=== PATIENT | male | born 1980 | race Caucasian/White ===

== ENCOUNTER → 2021-05-26 | Outpatient (CLI) | payer BC ==
[2021-05-26 13:27] VITALS: BP 154/99; PULSE 110; TEMP 98; BMI 64.8
--- NOTE | 2021-05-26 14:10 | P.HPBAR ---
Bariatric H&P - History & Physicial H&P Date: 05/26/21 History & Physicial: Visit/CC: initial clinic visit Patient initial contact: Initial weight: Initial weight in pounds: Height: 5 ft 8.5 in Initial BMI: Last weight: Current weight: 196.405 kg Current weight in pounds: 433.00 Current BMI: 64.8 [place] body weight (based on NIH guidelines): 71.214 kg Excess body weight loss: The patient is a 41 year-old M who presents for Bariatric Assessment. DATE OF SERVICE: 05/26/2021 REASON FOR CONSULTATION: Initial bariatric evaluation. HISTORY OF PRESENT ILLNESS: Hussain Nagel is a 41-year-old male who comes with lifelong morbid obesity. He presents for the first time in consultation. He comes in looking into bariatric procedures. He has tried calorie restriction and walking. His highest weight is 453 pounds. He has lower back pain. He has elevated blood pressure and heart rate. He has right hip pain. He denies knee pain. He has ankle pain of the right greater than left. His mother had diabetes and trouble with weight including sister with multiple sclerosis. He denies cancers. He has no deep venous thrombosis in himself. He reports his mother may have had blood clots. He denies food intolerances. He has trouble with sleeping. At height of 5 feet 8.5 inches, ideal body weight is 163 pounds. Highest weight is 453 pounds, body mass index 68.0. He comes in 432 pounds. His body mass index is 64.9. He is 269 pounds overweight. PAST MEDICAL HISTORY: 1. Morbid obesity due to excess calories 2. Body mass index of 68.0 3. Osteoarthritis of the lower back 4. Osteoarthritis of the right hip 5. Osteoarthritis of the bilateral ankles 6. Hypertensive heart disease 7. Gout PAST SURGICAL HISTORY: 1. Right foot surgery 2. Testicular surgery HOME MEDICATIONS: Home Medications Medication Instructions Recorded Confirmed Colchicin-Probenecid 0.5-500Mg 1 each PO DAILY 05/26/21 05/26/21 [Colbenemid] ALLERGIES: Allergies Allergy/AdvReac Type Severity Reaction Status Date / Time No Known Allergies Allergy Verified 05/26/21 14:12 SOCIAL HISTORY: Denies tobacco use. FAMILY HISTORY: No family history of ulcerative colitis disease or Crohn's disease. Family history of morbid obesity. No lupus in the family. No reports of stomach or esophageal cancer. Mother has diabetes and trouble with weight including sister with multiple sclerosis. He reports his mother may have had blood clots. REVIEW OF ORGAN SYSTEMS: CONSTITUTIONAL: At height of 5 feet 8.5 inches, ideal body weight is 163 pounds. Highest weight is 453 pounds, body mass index 68.0. He comes in 432 pounds. His body mass index is 64.9. He is 269 pounds overweight. HEENT: Denies any active troubles with vision or hearing. ENDOCRINE: Denies diabetes. Denies hypothyroidism. CARDIOVASCULAR: Has hypertensive heart disease. Has palpitations. RESPIRATORY: Has daytime somnolence and snores. GASTROINTESTINAL: Denies any bright red blood per rectum. No diarrhea. No constipation. Has gastroesophageal reflux disease. GENITOURINARY: Denies bladder urgency. No recent blood in urine MUSCULOSKELETAL: Has lower back pain and joint pain. Has gout. NEURO: Denies chronic migraines. No seizure disorders. PSYCH: Denies depression. No suicidal ideation. RHEUMATOLOGIC: No lupus. No rheumatoid arthritis. HEMATOLOGIC: Denies any abnormal bleeding or bruising. Denies past history of DVTs. SKIN: No rash. No skin cancer. PHYSICAL EXAM: VITAL SIGNS: Height 5 foot 8.5 inches, weight 432 pounds. BMI 64.9 Vital Signs Temp 98 F 05/26/21 13:24 Pulse 110 H 05/26/21 13:24 Resp BP 154/99 05/26/21 13:24 Pulse Ox GENERAL: Well-developed in no acute distress. HEENT: No scleral icterus. Extraocular movements grossly intact. Hears conversational speech. No nasal drainage. NECK: Supple without lymphadenopathy. CHEST: Nonlabored respirations with equal bilateral excursions. CARDIOVASCULAR: Regular rate and regular rhythm. Distal 2+ pulses. ABDOMEN: Obese, soft, nontender, nondistended. MUSCULOSKELETAL: No clubbing, cyanosis. NEURO: No focal or lateralizing signs. Cranial nerves 2 through 12 grossly within normal limits. PSYCH: Appropriate affect. Alert and oriented to person, place and time. SKIN: Good skin turgor. Well perfused. ASSESSMENT: 1. Morbid obesity due to excess calories 2. Body mass index of 68.0 to 63.9 3. Osteoarthritis of the lower back 4. Osteoarthritis of the right hip 5. Osteoarthritis of the bilateral ankles 6. Hypertensive heart disease 7. Gout 8. Family history of DVTs 9. Sleep disorder PLAN: 1. Surgical options including a band, gastric bypass, sleeve gastrectomy were described in detail. Alternatives such as gastric balloon including duodenal switch were described. 2. The [place] bariatric surgical collaborative data and outcomes calculator were described with surgical options. 3. Recommend a bariatric metabolic panel to evaluate for micro- including macronutrient deficiencies. 4. For history of daytime somnolence, recommend evaluation and treatment for sleep apnea. 5. Dietary surveillance and counseling was reviewed. Increased protein intake over 65 grams daily advised. 6. Will need cardiac risk assessment. 7. Recommend medical risk assessment. 8. Psych assessment per insurance guidelines. 9. Recommend upper endoscopy. 10. Recommend 12-lead EKG. 11. Recommend urine nicotine testing pre-op 12. Recommend urine drug screen Thank you for this consultation. Past Medical History Past Medical History: Hypertension, Sleep Apnea/CPAP/BIPAP History of Any Multi-Drug Resistant Organisms: MRSA Year Discovered:: 2018 MDRO Source:: right foot Additional Past Surgical History / Comment(s): right foot surgery due to mrsa. testicular surgery [place] Past Anesthesia/Blood Transfusion Reactions: No Reported Reaction Past Psychological History: No Psychological Hx Reported Smoking Status: Never smoker Past Alcohol Use History: None Reported Past Drug Use History: None Reported Surgical - Exam Vital Signs Temp Pulse BP 98 F 110 H 154/99 05/26/21 13:24 05/26/21 13:24 05/26/21 13:24 Bariatric Checklist Checklist: Plan: Checklist: EGD: 1. Hiatal hernia: 2. H. Pylori: HgbA1c: Vitamin D: Smoking: Primary care physician referral: dr anish meyers Psychiatry clearance: Cardiology clearance: Sleep study: Diet journal: VTE risk score: VTE risk level: Rehab needs at discharge:
== END | disposition home or self-care (01) ==
LOC: BARWHC3 12:45
PROVIDERS: ATTEND Surgery Plastic and Reconstructive Surgery
DX: Z48.815 Encounter for surgical aftercare following surgery on the digestive system (principal)
CPT/HCPCS: 99203

== ENCOUNTER 2024-05-14 14:44 | Emergency (ER) | payer BC ==
[2024-05-14 16:27] LABS: Basophils # (A) 0.1 k/uL (0-0.2); Basophils % (A) 1 %; Eosinophils # (A) 0.3 k/uL (0-0.7); Eosinophils % (A) 3 %; HCT 46.4 % (39.0-53.0); HGB 15.3 gm/dL (13.0-17.5); Lymphocytes # (A) 2.3 k/uL (1.0-4.8); Lymphocytes % (A) 22 %; MCH 29.3 pg (25.0-35.0); MCV 88.6 fL (80.0-100.0); Mean Platelet Volume 6.9; Monocytes # (A) 0.7 k/uL (0-1.0); Monocytes % (A) 6 %; Neutrophils # (A) 6.9 k/uL (1.3-7.7); Neutrophils % (A) 66 %; Platelet Count 306 k/uL (150-450); RBC 5.23 m/uL (4.30-5.90); RDW 13.3 % (11.5-15.5); WBC 10.4 k/uL (3.8-10.6)
[2024-05-14 16:36] LABS: Partial Thromboplastin Time 24.9 sec (22.0-30.0); Prothrombin Time 11.3 sec (10.0-12.5)
[2024-05-14 16:38] LABS: ALT 25 U/L (4-49); AST 21 U/L (17-59); African American GFR (CKD) >90 (>60 ml/min/1.73 sqM); Albumin 4.1 g/dL (3.5-5.0); Alkaline Phosphatase 72 U/L (38-126); Anion Gap 10 mmol/L; Blood Urea Nitrogen 12 mg/dL (9-20); Calcium 9.1 mg/dL (8.4-10.2); Carbon Dioxide 28 mmol/L (22-30); Chloride 101 mmol/L (98-107); Glucose 99 mg/dL (74-99); Non-African American GFR(CKD) >90 (>60 ml/min/1.73 sqM); Potassium 4.4 mmol/L (3.5-5.1); Sodium 139 mmol/L (137-145); Total Bilirubin 0.7 mg/dL (0.2-1.3); Total Protein 7.6 g/dL (6.3-8.2)
--- NOTE | 2024-05-14 16:46 | ED ---
Chest Pain HPI - General Chief Complaint: Chest Pain Stated Complaint: Chest pain Time Seen by Provider: 05/14/24 16:46 Source: patient Mode of arrival: ambulatory Limitations: no limitations - History of Present Illness Initial Comments: 44-year-old male presenting with chief complaint of chest pain. Patient states he has been having intermittent chest pain since this morning. It is centralized pain that is sharp in nature. Worse with certain movements. Not made worse with deep breaths or coughing. He is having no difficulty breathing. No lower extremity swelling. No cough, congestion, sore throat, fever, chills. No nausea vomiting or abdominal pain. No radiation of pain to the arm or jaw. No change with exertion. - Related Data Home Medications Medication Instructions Recorded Confirmed Albuterol Nebulized [Ventolin 2.5 mg INHALATION RT-Q4H PRN 05/14/24 05/14/24 Nebulized] Furosemide [Lasix] 40 mg PO DAILY 05/14/24 05/14/24 Gabapentin [Neurontin] 100 mg PO BID@0800,1300 05/14/24 05/14/24 Gabapentin [Neurontin] 300 mg PO HS 05/14/24 05/14/24 Ibuprofen [Motrin] 800 mg PO DAILY PRN 05/14/24 05/14/24 Phentermine HCl [Adipex-P] 37.5 mg PO DAILY 05/14/24 05/14/24 Potassium Chloride [Klor-Con M20] 20 meq PO DAILY 05/14/24 05/14/24 carvediloL [Coreg] 3.125 mg PO BID 05/14/24 05/14/24 lisinopriL [Zestril] 10 mg PO DAILY 05/14/24 05/14/24 methocarbamoL [Robaxin-750] 750 mg PO HS PRN 05/14/24 05/14/24 Allergies Allergy/AdvReac Type Severity Reaction Status Date / Time sulfamethoxazole Allergy Rash/Hives Verified 05/14/24 19:18 [From Bactrim] trimethoprim [From Bactrim] Allergy Rash/Hives Verified 05/14/24 19:18 Review of Systems ROS Statement: Those systems with pertinent positive or pertinent negative responses have been documented in the HPI. ROS Other: All systems not noted in ROS Statement are negative. Past Medical History Past Medical History: Hypertension, Sleep Apnea/CPAP/BIPAP Additional Past Medical History / Comment(s): Obese History of Any Multi-Drug Resistant Organisms: MRSA Date of last positivie culture/infection: 2017 MDRO Source:: right foot Additional Past Surgical History / Comment(s): right foot surgery due to mrsa. testicular surgery [place] Past Anesthesia/Blood Transfusion Reactions: No Reported Reaction Past Psychological History: No Psychological Hx Reported Smoking Status: Never smoker Past Alcohol Use History: None Reported Past Drug Use History: None Reported General Exam - General Exam Comments Initial Comments: Visual Physical Exam Vital signs reviewed General: Well-appearing, nontoxic, no acute distress. Head: Normocephalic, atraumatic Eyes: PERRLA, EOMI ENT: Airway patent Chest: Nonlabored breathing Skin: No visual rash, normal skin tone Neuro: Alert and oriented 3 Musculoskeletal: No gross abnormalities Limitations: no limitations General appearance: alert, in no apparent distress Head exam: Present: atraumatic, normocephalic, normal inspection Eye exam: Present: normal appearance, EOMI Neck exam: Present: normal inspection. Absent: meningismus Respiratory exam: Present: normal lung sounds bilaterally. Absent: respiratory distress, wheezes, rales, rhonchi, stridor Cardiovascular Exam: Present: regular rate, normal rhythm, normal heart sounds. Absent: systolic murmur, diastolic murmur, rubs, gallop, clicks Extremities exam: Absent: pedal edema Neurological exam: Present: alert, oriented X3 Psychiatric exam: Present: normal affect, normal mood Skin exam: Present: warm, dry Course Vital Signs 05/14/24 05/14/24 14:56 21:11 Temperature 98.7 F 98.4 F Pulse Rate 98 84 Respiratory 20 18 Rate Blood Pressure 117/77 121/79 O2 Sat by Pulse 98 98 Oximetry Chest Pain MDM - MDM I performed the quick note portion of this visit, electronically signed Mau Hernandez PA-C EKG shows sinus rhythm ventricular rate 94. NC interval 154. QRS 102. QT 327. QTc 379. No previous available for comparison. Was pt. sent in by a medical professional or institution (Dr. PA, SOLDERER, urgent care, hospital, or care home...) When possible be specific @ -No Did you speak to anyone other than the patient for history (EMS, parent, family, police, friend...)? What history was obtained from this source @ -No Did you review nursing and triage notes (agree or disagree)? Why? @ -I reviewed and agree with nursing and triage notes Were old charts reviewed (outside hosp., previous admission, EMS record, old EKG, old radiological studies, urgent care reports/EKG's, care home records)? Report findings @ -No old charts were reviewed Differential Diagnosis (chest pain, altered mental status, abdominal pain women, abdominal pain men, vaginal bleeding, weakness, fever, dyspnea, syncope, headache, dizziness, GI bleed, back pain, seizure, CVA, palpatations, mental health, musculoskeletal)? @ -MDM Differential Chest Pain: Stable Angina, Unstable Angina, STEMI, NSTEMI Aortic Dissection, Pneumothorax, Musculoskeletal, Esophageal Spasm GERD, Cholecystitis, Pancreatitis, Zoster This is not meant to be an all-inclusive list. EKG interpreted by me (3pts min.). @ -As above X-rays interpreted by me (1pt min.). @ -Chest x-ray shows no acute process. CT interpreted by me (1pt min.). @ -None done U/S interpreted by me (1pt. min.). @ -None done What testing was considered but not performed or refused? (CT, X-rays, U/S, labs)? Why? @ -None What meds were considered but not given or refused? Why? @ -None Did you discuss the management of the patient with other professionals (professionals i.e. , PA, SOLDERER, lab, RT, psych nurse, social services director, dinkey dispatcher, teacher, transportation officer, director of casework department)? Give summary @ -No Was smoking cessation discussed for >3mins.? @ -No Was critical care preformed (if so, how long)? @ -No Were there social determinants of health that impacted care today? How? (Homelessness, low income, unemployed, alcoholism, drug addiction, transportation, low edu. Level, literacy, decrease access to med. care, alf, rehab)? @ -No Was there de-escalation of care discussed even if they declined (Discuss DNR or withdrawal of care, Hospice)? DNR status @ -No What co-morbidities impacted this encounter? (DM, HTN, Smoking, COPD, CAD, Cancer, CVA, ARF, Chemo, Hep., AIDS, mental health diagnosis, sleep apnea, morbid obesity)? @ -None Was patient admitted / discharged? Hospital course, mention meds given and route, prescriptions, significant lab abnormalities, going to OR and other pertinent info. @ -44-year-old male presenting with chief complaint of chest pain. Sharp centralized chest pain with no radiation. No pleuritic quality and not worse on exertion. It is worse with particular movements. No lower extremity swelling. Heart and lungs are clear to auscultation. Lab work is grossly unremarkable. Patient has negative troponins x 2. No ST deviation seen on his EKG. Chest x- ray shows no acute process. His heart score is 2. Patient is educated on today's findings. He would like to be discharged home, I believe this is reasonable. He will follow-up with his PCP and is provided with referral to cardiology. Follow-up with PCP. Report back to ER with any new or worsening symptoms. Discussed return parameters and answered all questions. Patient conveyed verbal understanding and agreed to the plan. I discussed this case in detail with my attending Dr. Bhagat Undiagnosed new problem with uncertain prognosis? @ -No Drug Therapy requiring intensive monitoring for toxicity (Heparin, Nitro, Insulin, Cardizem)? @ -No Were any procedures done? @ -No Diagnosis/symptom? @ -Atypical chest pain Acute, or Chronic, or Acute on Chronic? @ -Acute Uncomplicated (without systemic symptoms) or Complicated (systemic symptoms)? @ -Uncomplicated Side effects of treatment? @ -No Exacerbation, Progression, or Severe Exacerbation? @ -No Poses a threat to life or bodily function? How? (Chest pain, [place], [place], pneumonia, PE, COPD, DKA, ARF, appy, cholecystitis, CVA, Diverticulitis, Homicidal, Suicidal, threat to staff... and all critical care pts) @ -Low likelihood Disposition Clinical Impression: Atypical chest pain Disposition: HOME SELF-CARE Condition: Good Instructions (If sedation given, give patient instructions): Chest Pain (ED) Additional Instructions: Follow-up with PCP and cardiology. Report back to ER with any new or worsening symptoms. Is patient prescribed a controlled substance at d/c from ED?: No Referrals: Edward Franklin MD [Primary Care Provider] - 1-2 days Torin Paige MD [STAFF PHYSICIAN] - 1-2 days Time of Disposition: 20:20
--- NOTE | 2024-05-14 18:16 | XR ---
EXAMINATION TYPE: XR chest 2V DATE OF EXAM: 05/14/2024 5:33 PM COMPARISON: None. CLINICAL INDICATION: Male, 44 years old with history of Chest Pain, TECHNIQUE: XR chest 2V view(s) obtained. FINDINGS: The heart size is normal. The pulmonary vasculature is normal. The lungs are clear. IMPRESSION: 1. No acute pulmonary process. [facility], Workstation: [facility], 05/14/2024 6:14 PM
[2024-05-14] MEDS: KETOROLAC 15 MG/ML 1 ML VIAL IVP STA (19:09)
[2024-05-14 21:12] VITALS: BP 121/79; PULSE 84; RESP 18; TEMP 98.4
== END 2024-05-14 21:12 | disposition home or self-care (01) ==
LOC: EC 14:44
DX: R07.89 Other chest pain (principal); Z88.1 Allergy status to other antibiotic agents; Z88.2 Allergy status to sulfonamides
CPT/HCPCS: 36415; 93005; 80053; 83735; 84484; 85025; 85610; 85730; 71046; 99285; 96374; J1885